=== PATIENT | male | born 1990 | race Caucasian/White ===

== ENCOUNTER 2016-09-05 16:52 | Emergency (ER) | payer SELFPAY ==
[2016-09-05 17:09] VITALS: BP 151/71; PULSE 108; RESP 14; TEMP 98.4; O2SAT 98
[2016-09-05] MEDS ORDERED: PROPARACAINE 0.5% 15 ML OPHT DROP ONE (17:21)
--- NOTE | 2016-09-05 18:09 | UCPHY ---
H & P Time Seen by Provider: 09/05/16 17:26 Patient Type: New HPI/ROS: CHIEF COMPLAINT: Left eye irritation HISTORY OF PRESENT ILLNESS: 26-year-old male presents to Urgent Care with irritation to the left eye. The patient was working with a cinnamon grinder few days ago and felt something go into his left eye. He presents to urgent care because I just can't stand it anymore. He denies double vision or blurry vision. He did try irrigating his eye today. No symptoms in the right eye. ROS: Denies double vision, blurry vision. Denies foreign body sensation. Past Medical/Surgical History: Negative Social History: Single, works as a otr tanker truck driver Smoking Status: Former smoker Physical Exam: Visual Acuity: noted from Nurse's notes. Pupils:equal round and reactive to light EOMI Lids: no edema or swelling upper eyelid was everted and no foreign body noted. Skin: no proptosis, no periorbital erythema or swelling, no vesicles Conjunctivae: Mild conjunctival injection to the left eye noted. No discharge. Cornea: Alcaine drops instilled into the left eye. Fluorescein drops were used. Under slit-lamp examination the patient has a rust ring noted at the 9 o' clock position of the cornea. There is also superficial diffuse corneal abrasion noted to the eye that does not cross the pupil. Anterior chamber:normal, no hyphema or hypopyon Constitutional: Initial Vital Signs Temperature (C) 36.9 C 09/05/16 17:04 Heart Rate 108 H 09/05/16 17:04 Respiratory Rate 14 09/05/16 17:04 Blood Pressure 151/71 H 09/05/16 17:04 O2 Sat (%) 98 09/05/16 17:04 O2 Delivery Mode Room Air Allergies/Adverse Reactions: No Known Allergies Allergy (Unverified 09/05/16 17:04) Home Medications: Medication Instructions Recorded NK [No Known Home Meds] 09/05/16 MDM/Departure - MDM Medications Given: Discontinued Medications Ofloxacin (Ocuflox 0.3% Opht Drops Prepack) [facility] Stop: 09/05/16 18:11 Last Admin: 09/05/16 18:28 Dose: 1 btl ED Course/Re-evaluation: 26 year old male with left eye irritation. On examination the patient has a retained rust ring. I do not visualize any retained corneal foreign body. He does have superficial abrasions. He was treated with Ocuflox drops. His tetanus shot is current. He will follow up with hearing stenographer on Wednesday to recheck. The importance of this was discussed with the patient a verbalized understanding and agreed. - Depart Disposition: Home, Routine, Self-Care Clinical Impression: Corneal rust ring of left eye Corneal abrasion, left Qualifiers: Encounter type: initial encounter Qualifier Code: (S05.02XA) Injury of conjunctiva and corneal abrasion without foreign body, left eye, initial encounter Condition: Good Instructions: Corneal Abrasion (ED) Additional Instructions: Ocuflox drops four times daily for one week to left eye. Follow up with hearing stenographer on Wednesday to recheck. Referrals: Liz Andrew MD [Medical Doctor] - 1-2 days without fail ([employer] on -call) - PQRS PQRS Measurement: Not applicable
[2016-09-05] MEDS ORDERED: OFLOXACIN 0.3% SOLN PREPACK OPHT.BTL TAKEHOME ONE (18:10)
== END 2016-09-05 18:30 | disposition home or self-care (01) ==
LOC: CED 16:52
DX: S05.02XA Injury of conjunctiva and corneal abrasion without foreign body, left eye, initial encounter (principal); Z87.891 Personal history of nicotine dependence
CPT/HCPCS: 99202-PO; G0463-PO